=== PATIENT | female | born 1995 | race American Indian/Alaskan Native ===

== ENCOUNTER 2017-01-20 02:32 | Emergency (ER) | payer SELFPAY ==
[2017-01-20 02:47] VITALS: BP 141/70
--- NOTE | 2017-01-20 03:26 | Emergency Department Report ---
HPI - General Chief Complaint: Sore Throat Time Seen by Provider: 01/20/17 03:10 - HPI HPI: Patient is a 21-year-old male who presents to ED with friend complaining of throat pain 4 days. Patient describes pain as throbbing in nature, 8 out of 10 intensity, nonradiating, localized to his throat. Admits pain with swallowing and eating. Patient admits no appetite due to throat pain. Patient admits dry, nonproductive cough. Patient admits fever for the first 2 days but not at the moment. Patient denies nausea/vomiting/abdominal pain/shortness of breath/chest pain/ headache. ED Past Medical Hx - Past Medical History Previous Medical History?: Yes Hx Hypertension: No Hx CVA: No Hx Heart Attack/AMI: No Hx Congestive Heart Failure: No Hx Diabetes: No Hx Deep Vein Thrombosis: No Hx Pulmonary Embolism: No Hx GERD: No Hx Liver Disease: No Hx Renal Disease: No Hx of Cancer: No Hx Sickle Cell Disease: No Hx Arthritis: No Hx Headaches / Migraines: Yes Hx Seizures: No Hx Kidney Stones: No Hx Psychiatric Treatment: No Hx Asthma: No Hx COPD: No Hx Tuberculosis: No Hx Dementia: No Hx HIV: No - Social History Smoking Status: Never Smoker Substance Use Type: None - Medications Home Medications: Home Medications Medication Instructions Recorded Confirmed Last Taken Type Acetamin/Codeine 120-12Mg/5 ml 5 ml PO TID PRN #50 ml 01/20/17 Unknown Rx [Tylenol/Codeine] Ibuprofen [Motrin] 600 mg PO Q8H PRN #30 tablet 01/20/17 Unknown Rx SUMAtriptan SUCCINATE [Imitrex] 50 mg PO PRN PRN 01/20/17 01/20/17 Unknown History ED Review of Systems ROS: Stated complaint: EAR AND THROAT PAIN Other details as noted in HPI Constitutional: denies: chills, fever Eyes: denies: eye pain, eye discharge, vision change ENT: as per HPI, ear pain, throat pain Respiratory: denies: cough, shortness of breath, wheezing Cardiovascular: denies: chest pain, palpitations Endocrine: no symptoms reported Gastrointestinal: denies: abdominal pain, nausea, diarrhea Genitourinary: denies: urgency, dysuria, discharge Musculoskeletal: denies: back pain, joint swelling, arthralgia Skin: denies: rash, lesions Neurological: denies: headache, weakness, paresthesias Psychiatric: denies: anxiety, depression Hematological/Lymphatic: denies: easy bleeding, easy bruising Physical Exam - Physical Exam Vital Signs: Vital Signs 01/20/17 02:43 Temperature 98.6 F Pulse Rate 89 Respiratory 18 Rate Blood Pressure 141/70 Blood Pressure 141/70 [Left] O2 Sat by Pulse 100 Oximetry Physical Exam: GENERAL: Alert and oriented x3, no apparent distress, Normal Gait, atraumatic. HEAD: Head is normocephalic and a-traumatic. EYES: Extra ocular muscles are intact. Pupils are equal, round, and reactive to light and accommodation. EARS: symetrical, atraumatic, non tender tragus bilat , ear canal clear and moderate cerumen, tympanic membrance non inflamed. gross auditory nml bilaterally. NOSE: Nose symetrical, Nontender,Nares appeared normal. MOUTH:Mouth is well hydrated and without lesions. Tonsils nonerythematous , mildly swollen, Uvula midline, Tongue not elevated. Mucous membranes are moist. Posterior pharynx clear, no exudate or lesions. Patent airways. NECK: Supple. Non edematous, No carotid bruits. No lymphadenopathy or thyromegaly. LUNGS: Symetrical with respiration, No wheezing, no rales or crackles, CTAB. HEART: S1, S2 present, regular rate and rhythm without murmur, no rubs, no gallops. ABDOMEN: No organomegaly was noted,Positive bowel sounds, soft, and non- distended. . Nontender to palpation on all Quadrants, NO CVA SKIN: Warm and dry, No lesions, No ulceration or induration present. ED Course Vital Signs 01/20/17 02:43 Temperature 98.6 F Pulse Rate 89 Respiratory 18 Rate Blood Pressure 141/70 Blood Pressure 141/70 [Left] O2 Sat by Pulse 100 Oximetry ED Medical Decision Making - Medical Decision Making 21-year-old male presents with pharyngitis. ED course: Rapid strep tests ordered rapid strep test Neg Patient received 1 dose of Tylenol /cod, 60 mg of prednisone. Vital signs stable patient is in no acute or respiratory distress. Discussed findings with patient about the negative strep. Discussed treatment in ED with patient Discussed the patient that strep throat is contagious and to limit sharing spoons and such. Pt to be sent home on Motrin Discussed with patient follow-up with primary care physician. Patient verbally states he understands and will comply to follow-up. Critical care attestation.: If time is entered above; I have spent that time in minutes in the direct care of this critically ill patient, excluding procedure time. ED Disposition Clinical Impression: Tonsillitis Disposition: - TO HOME OR SELFCARE Is pt being admited?: No Does the pt Need Aspirin: No Condition: Stable Instructions: Tonsillitis (ED), Pharyngitis (ED) Prescriptions: Acetamin/Codeine 120-12Mg/5 ml [Tylenol/Codeine] 5 ml PO TID PRN #50 ml PRN Reason: Pain Ibuprofen [Motrin] 600 mg PO Q8H PRN #30 tablet PRN Reason: Pain Referrals: PRIMARY CARE, [Primary Care Provider] - 3-5 Days [facility] [Outside] - 3-5 Days [facility] [Outside] - 3-5 Days Forms: Accompanied Note, Work/School Release Form(ED) Time of Disposition: 04:40
[2017-01-20] MEDS ORDERED: DELTASONE PO ONE (03:55)
[2017-01-20] MEDS ORDERED: TYLENOL/CODEINE PO ONE (03:55)
== END 2017-01-20 04:52 | disposition home or self-care (01) ==
LOC: ED 02:32
DX: J03.90 Acute tonsillitis, unspecified (principal)
CPT/HCPCS: 87116; 87430; 99282; J7512